=== PATIENT | female | born 1995 | race Caucasian/White ===

== ENCOUNTER 2024-03-04 14:39 | Emergency (ER) | payer MEDICAID, OTHER ==
[~2024-03-04] VITALS: Ht 170.2 cm; Wt 54.0 kg
[2024-03-04 14:50] VITALS: BP 107/72; PULSE 86; RESP 16; O2SAT 99
[2024-03-04 16:40] VITALS: TEMP 98.6
[2024-03-04] MEDS: IBUPROFEN 400 MG TAB PO ONE (16:40)
[2024-03-04] MEDS ORDERED: IBUP1TAB4 PO (16:40)
== END 2024-03-04 16:43 | disposition home or self-care (01) ==
LOC: ER 14:39
DX: S63.611A Unspecified sprain of left index finger, initial encounter (principal); X58.XXXA Exposure to other specified factors, initial encounter; Y93.89 Activity, other specified; Y92.89 Other specified places as the place of occurrence of the external cause; Y99.8 Other external cause status
CPT/HCPCS: 73130

== ENCOUNTER 2024-06-28 20:03 | Emergency (ER) | payer MEDICAID, OTHER ==
[~2024-06-28] VITALS: Ht 177.8 cm; Wt 55.9 kg
[~2024-06-28 20:03] MED LIST: IBUP1TAB4 PO
--- NOTE | 2024-06-28 21:10 | ED.PDOC ---
GI ASSESSMENT HPI Comments 29-year-old female who came to ER for abdominal pain. Patient states for the past 3 days she has been having intermittent episodes of cramping suprapubic abdominal pain, nonradiating, unprovoked. Patient states she has similar pains whenever she is on her menstrual cycle, however she currently is not her menstrual cycle. She denies any nausea, vomiting, changes in bowel habits or urinary symptoms. Chief Complaint: Abdominal Pain Time Seen by MD: 21:09 Primary Care Provider: GARY Soriano Notes: Nurses Notes Allergies: Coded Allergies: NO KNOWN ALLERGIES (Unverified , 03/04/24) Home Meds Active Scripts Ibuprofen Micronized (Ibuprofen) 400 Mg Tab, 400 MG PO Q4HPRN PRN, #20 TAB Prov:DOV EDWARDS PAC 03/04/24 Information Source: Patient Mode of Arrival: Ambulatory Timing: Days Duration: Intermittent Prehospital treatment: None Quality: Cramping Vomitus: None Stool: Normal Severity: Moderate Recent: None Recent Hx of: None Pain Location: Suprapubic Modifying Factors: Nothing Associated sign and symptoms: Abdominal Pain Past Medical History PAST MEDICAL HISTORY: Denies Surgical History: Denies all surgeries HAND STRAIGHTENER History: No Pertinent HAND STRAIGHTENER History [facility] June 08, 2024 Family History Family History: Reviewed,noncontributory to illness Social History Smoker: Non-Smoker Alcohol: Denies ETOH Use Drugs: Denies Drug Use Lives In: Home Constitutional: denies: chills, diaphoresis, fatigue, fever, malaise, sweats, weakness, others EENTM: denies: blurred vision, double vision, ear bleeding, ear discharge, ear drainage, ear pain, ear ringing, eye pain, eye redness, hearing loss, mouth pain, mouth swelling, nasal discharge, nose bleeding, nose congestion, nose pain, photophobia, tearing, throat pain, throat swelling, voice changes, others Respiratory: denies: cough, hemoptysis, orthopnea, SOB at rest, shortness of breath, SOB with excertion, stridor, wheezing, others Cardiovascular: denies: chest pain, dizzy spells, diaphoresis, Dyspnea on exertion, edema, irregular heart beat, left arm pain, lightheadedness, palpitations, PND, syncope, others Gastrointestinal: reports: abdominal pain; denies: abdomen distended, blood streaked bowels, constipated, diarrhea, dysphagia, difficulty swallowing, hematemesis, melena, nausea, poor appetite, poor fluid intake, rectal bleeding, rectal pain, vomiting, others Genitourinary: denies: abnormal vagina bleeding, burning, dyspareunia, dysuria, flank pain, frequency, hematuria, incontinence, pain, , vagina discharge, urgency, others Neurological: denies: dizziness, fainting, headache, left sided numbness, left sided weakness, numbness, paresthesia, pre-existing deficit, right sided nu mbness, right sided weakness, seizure, speech problems, tingling, tremors, weakness, others Musculoskeletal: denies: back pain, gout, joint pain, joint swelling, muscle pain, muscle stiffness, neck pain, others Integumetry: denies: bruises, change in color, change in hair/nails, dryness, laceration, lesions, lumps, rash, wounds, others Allergic/Immunocompromised: denies: Difficulty Healing, Frequent Infections, Hives, Itching, others Hematologic/Lymphatic: denies: anemia, blood clots, easy bleeding, easy bruising, swollen glands, others Endocrine: denies: excessive hunger, excessive sweating, excessive thirst, excessive urination, flushing, intolerance to cold, intolerance to heat, unexplained weight gain, unexplained weight loss, others Psychiatric: denies: anxiety, bipolar disorder, depression, hopeless, panic disorder, schizophrenia, sleepless, suicidal, others Physical Exam General Appearance: No Apparent Distress, Normal HEENT: Normal ENT Inspection, Pharynx Normal, TMs Normal Neck: Full Range of Motion, Non-Tender, Normal, Normal Inspection Respiratory: Chest Non-Tender, Lungs Clear, No Accessory Muscle Use, No Respiratory Distress, Normal Breath Sounds Cardiovascular: No Edema, No JVD, No Murmur, No Gallop, Normal Peripheral Pulses, Regular Rate/Rhythm Breast Exam: Deferred Gastrointestinal: No Organomegaly, Non Tender, No Pulsatile Mass, Normal Bowel Sounds, Soft Genitalia: Deferred Pelvic: Deferred Rectal: Deferred Extremities: No calf tenderness, Normal capillary refill, Normal inspection, Normal range of motion, Non-tender, No pedal edema Musculoskeletal : Apperance: Normal Neurologic: Alert, rfid systems architect II-XII nml as Tested, No Motor Deficits, Normal Affect, Normal Mood, No Sensory Deficits Cerebellar Function: Normal Reflexes: Normal Skin: Dry, Normal Color, Warm Lymphatic: No Adenopathy Was a procedure done? Was a procedure done?: No GI differential Dx Differential Diagnosis: Constipation, Diverticular disease, Gastritis/PUD, Ga stroenteritis, Ovarian cyst/torsion, Pancreatitis, UTI, Urolithiasis, X-Ray, Labs, Meds, VS Vital Signs Date Time Temp Pulse Resp B/P (MAP) Pulse Ox O2 Delivery O2 Flow Rate FiO2 06/28/24 22:30 78 18 99 Room Air 06/28/24 22:30 98.0 78 18 114/59 (77) 99 98.0 06/28/24 20:36 98.3 76 16 128/79 (95) 98 Lab Test 06/28/24 21:16 06/28/24 20:58 Range/Units White Blood Count 6.4 4.4-10.8 10^3/uL Red Blood Count 4.07 4.0-5.20 10^6/uL Hemoglobin 12.4 12.2-16.2 g/dL Hematocrit 36.7 36.0-46.0 % Mean Corpuscular Volume 90.1 80.0-100.0 fL Mean Corpuscular Hemoglobin 30.4 28.0-32.0 pg Mean Corpuscular Hemoglobin Concent 33.7 32.0-36.0 g/dL Red Cell Distribution Width 13.4 11.8-14.3 % Platelet Count 321 140-450 10^3/uL Mean Platelet Volume 8.5 6.9-10.8 fL Neutrophils (%) (Auto) 50.3 37.0-80.0 % Lymphocytes (%) (Auto) 36.9 10.0-50.0 % Monocytes (%) (Auto) 9.2 0.0-12.0 % Eosinophils (%) (Auto) 2.9 0.0-7.0 % Basophils (%) (Auto) 0.7 0.0-2.0 % Neutrophils # (Auto) 3.2 1.6-8.6 10 ^3/uL Lymphocytes # (Auto) 2.3 0.4-5.4 10 ^3/uL Monocytes # (Auto) 0.6 0-1.3 10 ^3/uL Eosinophils # (Auto) 0.2 0-0.8 10 ^3/uL Basophils # (Auto) 0 0-0.2 10 ^3/uL Nucleated Red Blood Cells 0.0 % Sodium Level 142 136-145 mmol/L Potassium Level 4.2 3.5-5.1 mmol/L Chloride Level 109 H 98-107 mmol/L Carbon Dioxide Level 28 20-31 mmol/L Anion Gap 5 5-15 Blood Urea Nitrogen 10 9-23 mg/dL Creatinine 0.90 0.550-1.02 mg/dL Glomerular Filtration Rate Calc 88 >90 mL/min BUN/Creatinine Ratio 11.1 10.0-20.0 Serum Glucose 74 74-106 mg/dL Calcium Level 9.8 8.7-10.4 mg/dL Total Bilirubin 0.6 0.2-1.0 mg/dL Aspartate Amino Transferase (AST) 11 L 13-40 U/L Alanine Aminotransferase (ALT) 20 7-40 U/L Alkaline Phosphatase 62 46-116 U/L Total Protein 6.6 5.7-8.2 g/dL Albumin 4.4 3.2-4.8 g/dL Beta HCG, Quantitative 1.6 1.5-4.2 mIU/mL Urine Color Light-yellow Yellow Urine Clarity Clear Clear Urine pH 6.5 5.0-9.0 Urine Specific [place] 1.022 1.001-1.035 Urine Protein Negative Negative Urine Ketones Negative Negative Urine Blood Negative Negative /uL Urine Nitrite Negative Negative Urine Bilirubin Negative Negative Urine Urobilinogen Normal Negative mg/dL Urine Leukocyte Esterase Negative Negative /uL Urine RBC 2 0 - 4 /hpf Urine WBC 1 0 - 5 /hpf Urine Squamous Epithelial Cells Few <5 /hpf Urine Bacteria Few H None Seen /hpf Urine Mucus Few None Seen Urine Glucose Normal Normal mg/dL Current Medications Medications (Trade) Dose Ordered Sig/Ismael Route Start Time Stop Time Status Last Admin Sodium Chloride 1,000 ml @ 1,000 mls/hr Q1H ONCE IVB 06/28/24 21:15 06/28/24 22:14 DC 06/28/24 22:38 Ketorolac Tromethamine (Toradol Injection) 15 mg ONCE ONCE IV 06/28/24 21:15 06/28/24 21:16 DC 06/28/24 22:42 Time of 1ST Reevaluation: 21:07 Reevaluation 1ST: Unchanged Time of 2ND Reevaluation: 00:38 Reevaluation 2ND: Improved Patient Education/Counseling: Diagnosis, Treatment Family Education/Counseling: No Family Present Departure 1 Departure Time of Disposition: 00:38 Impression: Primary Impression: Ovarian cyst Disposition: 01 HOME / SELF CARE / HOMELESS Condition: Guarded Discharged With: Self Critical Care Note Critical Care Time?: No Stability Stability form required: No Heart Score Heart Score: Heart Score Response (Comments) Value History N/A 0 EKG N/A 0 Age N/A 0 Risk Factors N/A 0 Troponin N/A 0 Total 0 I personally scribed for LOYD PIZARRO MD ([email or web address]) on 06/28/24 at 21:10. Electronically submitted by Everett Kerns ([email or web address]). LOYD PIZARRO MD Jun 28, 2024 21:10
[2024-06-28 21:31] LABS: Basophils # (auto) 0 10 ^3/uL (0-0.2); Basophils % (auto) 0.7 % (0.0-2.0); Eosinophils # (auto) 0.2 10 ^3/uL (0-0.8); Eosinophils % (auto) 2.9 % (0.0-7.0); Hematocrit 36.7 % (36.0-46.0); Hemoglobin 12.4 g/dL (12.2-16.2); Lymphocytes # (auto) 2.3 10 ^3/uL (0.4-5.4); Lymphocytes % (auto) 36.9 % (10.0-50.0); Mean Corpuscular Hemoglobin 30.4 pg (28.0-32.0); Mean Corpuscular Hgb Conc. 33.7 g/dL (32.0-36.0); Mean Corpuscular Volume 90.1 fL (80.0-100.0); Monocytes # (auto) 0.6 10 ^3/uL (0-1.3); Monocytes % (auto) 9.2 % (0.0-12.0); Neutrophils # (auto) 3.2 10 ^3/uL (1.6-8.6); Neutrophils % (auto) 50.3 % (37.0-80.0); Platelet Count (auto) 321 10^3/uL (140-450); Red Blood Cells 4.07 10^6/uL (4.0-5.20); Red Cell Distribution Width 13.4 % (11.8-14.3); White Blood Cell 6.4 10^3/uL (4.4-10.8)
[2024-06-28 21:46] LABS: Urine Bacteria FEW /hpf (None Seen); Urine Blood Negative /uL (Negative); Urine Clarity Clear (Clear); Urine Color Light-Yellow (Yellow); Urine Mucus FEW (None Seen); Urine Protein, UAD Negative (Negative); Urine Specific Gravity 1.022 (1.001-1.035); Urine Squamous Epithelial Cell FEW /hpf (<5); Urine Urobilinogen Normal (Negative); Urine WBC 1 /hpf (0 - 5); Urine pH 6.5 (5.0-9.0)
[2024-06-28 21:49] LABS: Alanine Aminotransferase 20 U/L (7-40); Albumin 4.4 g/dL (3.2-4.8); Alkaline Phosphatase 62 U/L (46-116); Anion Gap 5 (5-15); BUN/Creatinine Ratio 11.1 (10.0-20.0); Bilirubin, Total 0.6 mg/dL (0.2-1.0); Blood Urea Nitrogen 10 mg/dL (9-23); Calcium 9.8 mg/dL (8.7-10.4); Carbon Dioxide 28 mmol/L (20-31); Glucose 74 mg/dL (74-106); Potassium 4.2 mmol/L (3.5-5.1); Sodium 142 mmol/L (136-145); Total Protein 6.6 g/dL (5.7-8.2)
[2024-06-28 21:57] LABS: Aspartate Aminotransferase 11 U/L (13-40); Chloride 109 mmol/L (98-107)
[2024-06-28 22:30] VITALS: TEMP 98
[2024-06-28] MEDS: SODIUM CHLORIDE 0.9% 1,000 ML IVB ONE (22:38)
[2024-06-28] MEDS: KETOROLAC TROMETH 30 MG/ML 1ML VIAL IV ONE (22:42)
[2024-06-28] MEDS: IOHEXOL 300 MG/ML 100ML BOTTLE IJ ONE (22:55)
--- NOTE | 2024-06-29 00:27 | DVH ---
CLINICAL HISTORY: low abd / pelvic pain TECHNIQUE: CT of the abdomen and pelvis was performed with intravenous contrast. 100 mL of Omnipaque 300 injected This exam was performed according to our departmental dose optimization program. Up-to-d ate CT equipment and radiation dose reduction techniques are utilized as appropriate. COMPARISON: None FINDINGS: Lower Thorax: Unremarkable. Liver and Biliary system: Mild hepatic steatosis. Decompressed gallbladder. Otherwise unremarkable. Spleen: Unremarkable. Adrenal Glands and Kidneys: Unremarkable apart from a tiny left upper pole renal hypodensity likely a cyst. Pancreas and Retroperitoneum: Unremarkable. Aorta and Major Vessels: Unremarkable. Bowel, Mesentery and Peritoneal space: Normal appendix. Normal caliber small and large bowel. There i s no free air or loculated fluid collection. There is trace pelvic ascites. This is likely physiologi c. Pelvis: Retroverted uterus. Collapsing right corpus luteum cyst. The left ovary is grossly unremarka ble. There is no pelvic lymphadenopathy. Urinary bladder is mildly distended. Abdominal wall and Osseous Structures: No destructive osseous lesion. IMPRESSION: 1. No acute abnormality. 2. Collapsing right corpus luteum cyst and mild physiologic ascites in the pelvis 3. Mild hepatic steatosis.
[2024-06-29 00:50] VITALS: BP 146/91; PULSE 75; RESP 16; O2SAT 100
== END 2024-06-29 00:55 | disposition home or self-care (01) ==
LOC: ER 20:03
DX: N83.11 Corpus luteum cyst of right ovary (principal); Z79.899 Other long term (current) drug therapy
CPT/HCPCS: 36415; 74177; 80053; 81001; 84702; 85025; 96361; 96374; 99285; J1885; J7030; Q9967

== ENCOUNTER 2024-10-16 12:44 | Emergency (ER) | payer MEDICAID, OTHER ==
[~2024-10-16] VITALS: Ht 180.3 cm; Wt 53.5 kg
[2024-10-16] MEDS ORDERED: ACET500T58 PO (14:45)
[2024-10-16] MEDS ORDERED: [UNRECOGNIZED DRUG - CODE] (14:45)
[2024-10-16] MEDS ORDERED: AUG875T PO (14:45)
[2024-10-16] MEDS ORDERED: CETI5TAB6 PO (14:45)
--- NOTE | 2024-10-16 14:45 | ED.PDOC ---
Eye-HPI HPI Comments 29-year-old female with no MHx presents with a chief complaint of atraumatic left ear pressure, and a buzzing sensation to the lef ear that started one week ago. Also reports of having a lingering sore throat for the last three weeks. Body aches that come and go. Also admits she has a history of seasonal allergies and complains of constant sneezing Denies fevers chills night sweats unintentional weight loss Denies persistent chest pain, shortness of breath, leg swelling Denies history of asthma nor any breathing conditions Denies history of pneumonia Denies recent international travel Chief Complaint: Earache Time Seen by MD: 13:28 Primary Care Provider: OOA Reviewed Notes: Nurses Notes, Medications, Allergies Allergies: Coded Allergies: NO KNOWN ALLERGIES (Unverified , 03/04/24) Home Meds Active Scripts Ibuprofen Micronized (Ibuprofen) 400 Mg Tab, 400 MG PO Q4HPRN PRN, #20 TAB Prov:DOV EDWARDS ASHLEY PAC 03/04/24 Information Source: Patient Mode of Arrival: Ambulatory Past Medical History PAST MEDICAL HISTORY: Denies Surgical History: Denies all surgeries RAIL MANAGER History: No Pertinent RAIL MANAGER History Family History Family History: Reviewed,noncontributory to illness Social History Smoker: Non-Smoker Alcohol: Denies ETOH Use Drugs: Denies Drug Use Lives In: Home All Other Systems: Reviewed and Negative (Per HPI) Physical Exam General Appearance: No Apparent Distress, Normal HEENT: Normal ENT Inspection, Pharynx Normal, TMs Normal Neck: Full Range of Motion, Non-Tender, Normal, Normal Inspection Respiratory: Chest Non-Tender, Lungs Clear, No Accessory Muscle Use, No Respiratory Distress, Normal Breath Sounds Cardiovascular: No Edema, No JVD, No Murmur, No Gallop, Normal Peripheral Pu lses, Regular Rate/Rhythm Breast Exam: Deferred Gastrointestinal: No Organomegaly, Non Tender, No Pulsatile Mass, Normal Bowel Sounds, Soft Genitalia: Deferred Pelvic: Deferred Rectal: Deferred Extremities: No calf tenderness, Normal capillary refill, Normal inspection, Normal range of motion, Non-tender, No pedal edema Musculoskeletal : Apperance: Normal Neurologic: Alert, recreation technician II-XII nml as Tested, No Motor Deficits, Normal Affect, Normal Mood, No Sensory Deficits Cerebellar Function: Normal Reflexes: Normal Skin: Dry, Normal Color, Warm Lymphatic: No Adenopathy Was a procedure done? Was a procedure done?: No EENT DIFF Eye: Viral Sore Throat: URI X-Ray, Labs, Meds, VS Vital Signs Date Time Temp Pulse Resp B/P (MAP) Pulse Ox O2 Delivery O2 Flow Rate FiO2 10/16/24 13:42 98.5 88 6 103/60 (74) 98 98.5 X-Ray, Labs, Meds, VS Comment The patient is overall well-appearing nontoxic on exam. On physical exam, respirations even and unlabored, clear to auscultation bilaterally. Oxygen stable on room air. Did not have any focal lung findings and therefore chest x-ray was not indicated during this exam Low suspicion of strep pharyngitis given physical exam findings and patient's presenting symptoms No signs of meningismus on exam Overall, the patient is well hydrated and nontoxic. Plan for symptomatic control for fever and pain as needed. The patient was able to tolerate p.o. intake in the ED. at this time, patient is safe for discharge home. The exam findings and plan discussed. We will discharge home with PCP follow up and strict return precautions. Discussed that cough can linger up to 6 weeks after viral URI Supportive care and return precautions discussed Recommended vitamin C, rest, handwashing, and symptomatic care. Expect 2-week course with possibly of cough lingering up to 6 weeks. Nonpharmacological remedies for fluids has been recommended as well Time of 1ST Reevaluation: 14:41 Reevaluation 1ST: Improved Patient Education/Counseling: Diagnosis, Treatment Family Education/Counseling: Diagnosis, Treatment Departure 1 Departure Time of Disposition: 14:43 Impression: Primary Impression: Viral syndrome Additional Impressions: Myalgia Allergies Qualified Codes: T78.40XA - Allergy, unspecified, initial encounter Ear pressure Qualified Codes: H93.8X2 - Other specified disorders of left ear Disposition: 01 HOME / SELF CARE / HOMELESS Condition: Stable e-Prescriptions Amoxicillin & Pot Clavulanate (AUGMENTIN TABLET) 875 Mg Tb 875 MG PO BID for 7 Days, #14 TAB 0 Refills Prov: ALPHONSO EL TELE MARKETING EXECUTIVE 10/16/24 Acetaminophen (Acetaminophen) 500 Mg Tab 500 MG PO Q6HP PRN for 10 Days, #40 TAB 0 Refills Prov: ALPHONSO EL TELE MARKETING EXECUTIVE 4/16/25 Cetirizine Hcl (Cetirizine Hcl) 5 Mg Tab 10 MG PO DAILY for 30 Days, #60 TAB 0 Refills Prov: ALPHONSO EL NP 10/16/24 Triamcinolone Acetonide (Nasal (Allergy Nasal [place] 24 Ho) 55 Mcg/Act Spr 55 MCG NA BID for 7 Days, #1 SPRAY 0 Refills Prov: ALPHONSO EL NP 10/16/24 Critical Care Note Critical Care Time?: No Stability Stability form required: No Heart Score Heart Score: Heart Score Response (Comments) Value History N/A 0 EKG N/A 0 Age N/A 0 Risk Factors N/A 0 Troponin N/A 0 Total 0 ALPHONSO EL NP Oct 16, 2024 14:45
[2024-10-16 14:51] VITALS: BP 103/60; PULSE 88; RESP 16; TEMP 98.5; O2SAT 98
== END 2024-10-16 14:53 | disposition home or self-care (01) ==
LOC: ER 12:46
DX: T78.40XA Allergy, unspecified, initial encounter (principal); H92.02 Otalgia, left ear; B34.9 Viral infection, unspecified; X58.XXXA Exposure to other specified factors, initial encounter

== ENCOUNTER 2024-11-09 15:50 | Emergency (ER) | payer MEDICAID ==
[~2024-11-09] VITALS: Ht 182.9 cm; Wt 55.8 kg
[~2024-11-09 15:50] MED LIST changes: +ACET500T58 PO; +AUG875T PO; +CETI5TAB6 PO; +[UNRECOGNIZED DRUG - CODE]
--- NOTE | 2024-11-09 16:42 | ED.PDOC ---
History of Present Illness HPI Comments This patient is a very lean 29-year-old female who arrives the ED today for evaluation of low back and right knee pain concerns. Patient denies any traumatic events. Patient states that she occasionally gets pain in both legs that radiates from her back. Patient states she was recently seen at her primary care provider and may possibly have rheumatoid arthritis. Patient is awaiting further evaluation. Patient denies any fever nausea or vomiting. Patient was limping at time of evaluation. Chief Complaint: Lower Extremity Time Seen by MD: 16:20 Primary Care Provider: MARIA ISABEL Reviewed Notes: Nurses Notes, Medications, Allergies Allergies: Coded Allergies: NO KNOWN ALLERGIES (Unverified , 03/04/24) Home Meds Active Scripts Amoxicillin & Pot Clavulanate (AUGMENTIN TABLET) 875 Mg Tb, 875 MG PO BID for 7 Days, #14 TAB 0 Refills Prov:ALPHONSO EL SENIOR CLINICAL STUDY MANAGER 10/16/24 Acetaminophen (Acetaminophen) 500 Mg Tab, 500 MG PO Q6HP PRN for 10 Days, #40 TAB 0 Refills Prov:ALPHONSO EL SENIOR CLINICAL STUDY MANAGER 10/16/24 Cetirizine Hcl (Cetirizine Hcl) 5 Mg Tab, 10 MG PO DAILY for 30 Days, #60 TAB 0 Refills Prov:ALPHONSO EL SENIOR CLINICAL STUDY MANAGER 10/16/24 Triamcinolone Acetonide (Nasal (Allergy Nasal [place] 24 Ho) 55 Mcg/Act Spr, 55 MCG NA BID for 7 Days, #1 SPRAY 0 Refills Prov:ALPHONSO EL SENIOR CLINICAL STUDY MANAGER 10/16/24 Ibuprofen Micronized (Ibuprofen) 400 Mg Tab, 400 MG PO Q4HPRN PRN, #20 TAB Prov:DOV EDWARDS PAC 03/04/24 Information Source: Patient Mode of Arrival: Ambulatory Severity: Moderate Timing: Came on: Gradually Duration: Since onset Prehospital treatment: None Past Medical History Past Medical History (Other): Possible rheumatoid arthritis Surgical History: Denies all surgeries GRE TUTOR History: No Pertinent GRE TUTOR History Family History Family History: Reviewed,noncontributory to illness, Unknown Social History Smoker: Non-Smoker Alcohol: Denies ETOH Use Drugs: Denies Drug Use Lives In: Home Constitutional: denies: chills, diaphoresis, fatigue, fever, malaise, sweats, weakness, others EENTM: denies: blurred vision, double vision, ear bleeding, ear discharge, ear drainage, ear pain, ear ringing, eye pain, eye redness, hearing loss, mouth pain, mouth swelling, nasal discharge, nose bleeding, nose congestion, nose pain, photophobia, tearing, throat pain, throat swelling, voice changes, others Respiratory: denies: cough, hemoptysis, orthopnea, SOB at rest, shortness of breath, SOB with excertion, stridor, wheezing, others Cardiovascular: denies: chest pain, dizzy spells, diaphoresis, Dyspnea on exertion, edema, irregular heart beat, left arm pain, lightheadedness, palpitations, PND, syncope, others Gastrointestinal: denies: abdomen distended, abdominal pain, blood streaked bowels, constipated, diarrhea, dysphagia, difficulty swallowing, hematemesis, melena, nausea, poor appetite, poor fluid intake, rectal bleeding, rectal pain, vomiting, others Genitourinary: denies: abnormal vagina bleeding, burning, dyspareunia, dysuria, flank pain, frequency, hematuria, incontinence, pain, , vagina discharge, urgency, others Neurological: denies: dizziness, fainting, headache, left sided numbness, left sided weakness, numbness, paresthesia, pre-existing deficit, right sided numbness, right sided weakness, seizure, speech problems, tingling, tremors, weakness, others Musculoskeletal: reports: back pain, others (Knee pain); denies: gout, joint pain, joint swelling, muscle pain, muscle stiffness, neck pain Integumetry: denies: bruises, change in color, change in hair/nails, dryness, laceration, lesions, lumps, rash, wounds, others Allergic/Immunocompromised: denies: Difficulty Healing, Frequent Infections, Hives, Itching, others Hematologic/Lymphatic: denies: anemia, blood clots, easy bleeding, easy bruising, swollen glands, others Endocrine: denies: excessive hunger, excessive sweating, excessive thirst, excessive urination, flushing, intolerance to cold, intolerance to heat, unexplained weight gain, unexplained weight loss, others Psychiatric: denies: anxiety, bipolar disorder, depression, hopeless, panic disorder, schizophrenia, sleepless, suicidal, others All Other Systems: Reviewed and Negative Physical Exam General Appearance: Moderate Distress ([id number] distress due to back pain and right knee pain concerns.), Normal HEENT: Normal ENT Inspection, Pharynx Normal, TMs Normal Neck: Full Range of Motion, Non-Tender, Normal, Normal Inspection Respiratory: Chest Non-Tender, Lungs Clear, No Accessory Muscle Use, No Respiratory Distress, Normal Breath Sounds Cardiovascular: No Edema, No JVD, No Murmur, No Gallop, Normal Peripheral Pulses, Regular Rate/Rhythm Breast Exam: Deferred Gastrointestinal: No Organomegaly, Non Tender, No Pulsatile Mass, Normal Bowel Sounds, Soft Genitalia: Deferred Pelvic: Deferred Rectal: Deferred Extremities: Other (Diffuse anterior and lateral right knee tenderness to palpation. No particular edema noted. No ecchymosis. Distal neurovascularly intact. [id number] reduced range of motion.) Musculoskeletal : Location: Bilateral Extremity Location: Back (Diffuse bilateral lower lumbar tenderness to palpation throughout. No step-offs noted. Patient denies any saddle paresthesia. No edema or ecchymosis.) Apperance: Normal Neurologic: Alert, No Motor Deficits, Normal Affect, Normal Mood, No Sensory Deficits Cerebellar Function: Normal Reflexes: Normal Skin: Dry, Normal Color, Warm Lymphatic: No Adenopathy Was a procedure done? Was a procedure done?: No Differential Dx Considerations may include: Degenerative disc disease of the lumbar spine, lumbar radiculopathy, knee fracture, internal knee derangement, RA X-Ray, Labs, Meds, VS Vital Signs Date Time Temp Pulse Resp B/P (MAP) Pulse Ox O2 Delivery O2 Flow Rate FiO2 11/09/24 17:30 80 20 98 Room Air* 0 21 11/09/24 16:31 98.8 103 16 115/73 (87) 98 98.8 Current Medications Medications (Trade) Dose Ordered Sig/Ismael Route Start Time Stop Time Status Last Admin Ketorolac Tromethamine (Toradol Injection) 30 mg ONCE ONCE IM 11/09/24 16:30 11/09/24 16:31 DC 11/09/24 17:27 X-Ray, Labs, Meds, VS Comment All studies performed the ED were evaluated by me personally. Lumbar series was unremarkable for any acute fractures or signs of degenerative changes. Right knee was unremarkable for any bony involvement. Advised patient to continue follow up with primary care provider for evaluation of pain concerns as these may be related to rheumatoid arthritis if indeed she was diagnosed with the condition. Time of 1ST Reevaluation: 18:04 Reevaluation 1ST: Improved Consultation: PCP Patient Education/Counseling: Diagnosis, Treatment, Prognosis Family Education/Counseling: Diagnosis, Treatment, No Family Present Departure 1 Departure Time of Disposition: 18:05 Impression: Primary Impression: Low back pain Additional Impression: Right knee pain Disposition: 01 HOME / SELF CARE / HOMELESS Condition: Stable Additional Instructions: Advised follow up with primary care provider for continued evaluation of rheumatoid arthritis that may be related to back and knee pain concerns. e-Prescriptions Acetaminophen (Acetaminophen) 500 Mg Tab 500 MG PO Q4HP PRN, #30 TAB Prov: MICHAELA CANALES PAC 11/09/24 Ibuprofen Micronized (Ibuprofen) 800 Mg Tab 800 MG PO Q8HP PRN, #20 TAB Prov: MICHAELA CANALES PAC 11/09/24 Discharged With: Self, Friend Critical Care Note Critical Care Time?: No Stability Stability form required: No Heart Score Heart Score: Heart Score Response (Comments) Value History N/A 0 EKG N/A 0 Age N/A 0 Risk Factors N/A 0 Troponin N/A 0 Total 0 I personally scribed for MICHAELA CANALES PAC ([email or web address]) on 11/09/24 at 16:42. Electronically submitted by Tom De Souza ([email or web address]). MICHAELA CANALES PAC November 09, 2024 16:42
--- NOTE | 2024-11-09 17:11 | DVH ---
CLINICAL INDICATION: Pain TECHNIQUE: XY R KNEE 3V XRAY Comparison: None FINDINGS/IMPRESSION: : There is no evidence of acute fracture or dislocation. Soft tissues are unremarkable.
--- NOTE | 2024-11-09 17:11 | DVH ---
INDICATION: Lumbar pain/radiculopathy TECHNIQUE: 4 views of the lumbar spine were obtained. COMPARISON: None FINDINGS: There are no acute fractures or subluxations. Moderate colonic stool. IMPRESSION: No acute fracture or subluxation.
[2024-11-09] MEDS: KETOROLAC TROMETH 60MG/2ML VIAL IM ONE (17:27)
[2024-11-09 17:30] VITALS: PULSE 80; RESP 20; O2SAT 98
[2024-11-09] MEDS ORDERED: ACET500T58 PO (18:06)
[2024-11-09] MEDS ORDERED: IBUP-1455 PO (18:06)
[2024-11-09 18:43] VITALS: BP 112/75; PULSE 90; RESP 20; TEMP 98.4; O2SAT 96
== END 2024-11-09 19:04 | disposition home or self-care (01) ==
LOC: ER 15:50
DX: M54.50 Low back pain, unspecified (principal); M25.561 Pain in right knee; Z79.899 Other long term (current) drug therapy
CPT/HCPCS: 72100; 73562; 96372; 99284; J1885